=== PATIENT | female | born 1980 | race Caucasian/White ===

== ENCOUNTER 2016-03-14 09:35 | Emergency (ER) | payer OTHER ==
[~2016-03-14 09:35] MED LIST: HYCET 325 MG/1473 ML PO; PROTONIX 40MG T40 MG PO; TRAMADOL50 MG PO; ZOFRAN4 MG PO
[2016-03-14 11:30] VITALS: BP 122/83
--- NOTE | 2016-03-14 11:55 | ED INFLUENZA/URI COMPLAINT ---
History of Present Illness General Chief Complaint: Upper Respiratory Sx/Fever Stated Complaint: "I HAVE THE FLU" Source: patient Exam Limitations: no limitations Vital Signs & Intake/Output Vital Signs & Intake/Output Vital Signs Date Time Temp Pulse Resp B/P Pulse O2 O2 Flow FiO2 Ox Delivery Rate 03/14 1522 70 03/14 1130 98.7 89 122/83 98 03/14 1039 99.0 90 20 124/80 98 Room Air Allergies Coded Allergies: NO KNOWN ALLERGIES (05/11/15) Reconcile Medications Dicyclomine Hydrochloride (Bentyl) 10 MG CAPSULE 1 CAP PO TID PRN GASTROENTERITIS HYDROCODONE/ACETAMINOPHEN (Hycet 7.5 MG-325 MG/15 Ml Soln) 473 ML DEBBIE 15 ML PO Q4P PRN PAIN Ondansetron HCl (Zofran) 4 MG TABLET 1 TAB PO Q6-8P PRN NAUSEA Pantoprazole Sodium (Protonix) 40 MG TAB 1 TAB PO DAILY anti ulcer Triage Note: PT PRESENTS TO ER C/O OF FLU LIKE SYMPTOMS FLU SWAB OBTAINED AND SENT Triage Nurses Notes Reviewed? yes Onset: Abrupt Duration: better Timing: single episode today Severity: moderate Severity Numbers: 5 : No Patient currently breastfeeds: No HPI: Patient is a 35-year-old female with an unremarkable past mental history who presents emergency room with a one-day history of nausea vomiting diarrhea. Patient states that yesterday at approximately 1800 she had acute onset of denies abdominal discomfort which she then immediately had an episode of nonbloody nonbilious emesis which relieved her abdominal discomfort however since patient has had multiple abscess of nonbloody nonbilious emesis and loose watery stool bowel production. Patient has been unable tolerate anything by mouth since symptoms began. Denies any history of current . Patient has history of tubal ligation. Denies any recent antibiotic use. Denies any similar sick contacts. Patient has associated since of tired weak and fatigued. Past History Travel History Traveled to [place] past 21 day No Medical History Any Pertinent Medical History? 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 No Review of Systems Review of Systems Constitutional: Reports: see HPI. EENTM: Reports: no symptoms. Respiratory: Reports: no symptoms. Cardiovascular: Reports: no symptoms. GI: Reports: see HPI, diarrhea, nausea, vomiting. Genitourinary: Reports: no symptoms. Musculoskeletal: Reports: no symptoms. Skin: Reports: no symptoms. Neurological/Psychological: Reports: no symptoms. Hematologic/Endocrine: Reports: no symptoms. Immunologic/Allergic: Reports: no symptoms. All Other Systems: Reviewed and Negative Physical Exam Physical Exam General Appearance: no apparent distress, alert, comfortable Ears, Nose, Throat: normal ENT inspection, moist mucous membrane, hearing grossly normal Comments: Well-developed well-nourished person in no acute distress HEENT: Normal EENT exam, extraocular motion intact, no nystagmus. Pupils equally round and reactive to light and accommodation. Nose is atraumatic. External auditory canal and Tympanic membranes clear. Pharynx normal. No swelling or edema. Neck: Supple, no lymphadenopathy, normal range of motion without pain or tenderness Back: Nontender, no CVA tenderness. Cardiovascular: Regular rate and rhythms no murmurs rubs or gallops, normal JVP Respiratory: Chest nontender. No respiratory distress.breath sounds clear to auscultation bilaterally Abdomen: Soft, nontender nondistended, no appreciable organomegaly. Normal bowel sounds. No ascites Extremity: No edema, no calf tenderness to palpation, normal and equal pulses. Neuro: Alert oriented, motor sensory normal, Skin: No appreciable rash on exposed skin, skin is warm and dry. Psych: Mood and affect is normal, memory and judgment is normal. Core Measures Severe Sepsis Present: No Septic Shock Present: No Progress Differential Diagnosis: influenza, meningitis, neutropenia, otitis, pneumonia, pharyngitis, sinusitis, GASTROENTERITIS, SMALL BOWEL OBSTRUCTION aPPENDICITIS Plan of Care: Orders Procedure Date/time Status HUMAN BETA HCG SCREEN 03/14 1205 Complete COMPREHENSIVE METABOLIC PANEL 03/14 1205 Complete CBC WITHOUT DIFFERENTIAL 03/14 120 Complete URINE 03/14 1204 Active URINALYSIS 03/14 120 Active RAPID VIRAL INFLUENZA A 03/14 0940 Complete Laboratory Tests 03/14/16 1227: Anion Gap 12, Estimated GFR > 60, BUN/Creatinine Ratio 20.0, Glucose 88, Calcium 9.1, Total Bilirubin 1.1, AST 12 L, ALT 30, Alkaline Phosphatase 52, Total Protein 6.8, Albumin 3.9, Globulin 2.9, Albumin/Globulin Ratio 1.3, Total Beta HCG NEGATIVE, CBC w Diff NO MAN DIFF REQ, RBC 4.59, MCV 87.7, MCH 30.3, RDW 12.7 , MPV 8.4, Gran % 85.7 H, Lymphocytes % 11.1 L, Monocytes % 2.7, Eosinophils % 0.3, Basophils % 0.2, Absolute Granulocytes 5.9, Absolute Lymphocytes 0.8 L, Absolute Monocytes 0.2, Absolute Eosinophils 0, Absolute Basophils 0, PUBS MCHC 34.5 Patient currently has no abdominal tenderness and has concerns of gastroenteritis. My suspicion of appendicitis is low however this is of my differential. Patient will receive blood work and IV antiemetics and IV saline resuscitation. Patient currently is in no apparent distress. After medications were administered patient had complete resolution of nausea patient was able tolerate by mouth liquids and crackers. Patient most likely has gastroenteritis. Upon discharge patient looks well nontender abdomen but is unstable and will follow-up with GI if symptoms still continue. Patient was given acetaminophen due to complaints of headache. (GEE HORTA,JERAMY) Initial ED EKG: none Departure Departure Disposition: HOME OR SELF CARE Condition: Stable Clinical Impression Primary Impression: Nausea vomiting and diarrhea Secondary Impressions: Gastroenteritis Referrals: PATIENT HAS NO PRIMARY CARE DR (PCP/Family) Additional Instructions: As discussed begin a 24-hour clear liquid and bland diet to rest your bowels. Begin the prescription of Zofran for future nausea. Begin the prescription of Bentyl for your abdominal complaints. If symptoms worsen or if YOU develop a new concerning symptom return to the emergency room immediately. If no better in 2 days follow-up with brine maker Dr. GUTIERRES Prescriptions are waiting at your [facility] pharmacy Departure Forms: Customer Survey General Discharge Information Prescriptions: Current Visit Scripts Ondansetron HCl (Zofran) 1 TAB PO Q6-8P PRN NAUSEA #15 TAB Dicyclomine Hydrochloride (Bentyl) 1 CAP PO TID PRN GASTROENTERITIS #9 CAP
[2016-03-14 12:38] LABS: ABSOLUTE BASOPHIL COUNT 0 /CUMM (0.0-0.2); ABSOLUTE EOSINOPHIL COUNT 0 /CUMM (0.0-0.7); ABSOLUTE GRANULOCYTE CT 5.9 /CUMM (1.4-6.5); ABSOLUTE LYMPH COUNT 0.8 /CUMM (1.2-3.4); ABSOLUTE MONOCYTE COUNT 0.2 /CUMM (0.10-0.60); BASOPHIL % 0.2 % (0.0-2.0); EOSINOPHIL % 0.3 % (0-5); HEMATOCRIT 40.2 % (37-47); MEAN CORPUSCULAR HGB 30.3 PG (27.0-31.0); MEAN CORPUSCULAR HGB CONC 34.5 G/DL (33.0-37.0); MEAN CORPUSCULAR VOLUME 87.7 FL (81.0-99.0); MEAN PLATELET VOLUME 8.4 FL (7.4-10.4); PLATELET COUNT 243 /CUMM (130-400); RBC DISTRIBUTION WIDTH 12.7 % (11.5-14.5); RED BLOOD CELL CT 4.59 /CUMM (4.20-5.40); WHITE BLOOD CELL COUNT 6.9 /CUMM (4.8-10.8)
[2016-03-14 13:00] LABS: GRANULOCYTE % 85.7 % (42.2-75.2)
[2016-03-14] MEDS ORDERED: BENTYL10 M1 PO (15:02)
[2016-03-14] MEDS ORDERED: ZOFRAN4 M2 PO (15:02)
== END 2016-03-14 15:23 ==
LOC: ERH 09:35
PROVIDERS: Physician Assistant
DX: R11.2 Nausea with vomiting, unspecified (principal); K52.9 Noninfective gastroenteritis and colitis, unspecified
CPT/HCPCS: 81025; 87804; 87804-59; 96374; 96375; J0131; J2405